=== PATIENT | male | born 1965 | race American Indian/Alaskan Native ===

== ENCOUNTER 2016-12-07 10:15 | Observation (INO) | payer OTHER, BC ==
[2016-12-07] MEDS ORDERED: Aspirin 81 MG Tab.Chew PO ONE ×2 (10:17→10:27)
[2016-12-07] MEDS ORDERED: Sodium Chloride 0.9% 10 ML Syringe FLUSH PRN (10:17)
[2016-12-07] MEDS ORDERED: Famotidine 20 MG/2 ML SDV IVPUSH ONE (10:17)
[2016-12-07] MEDS ORDERED: Nitroglycerin 0.4 MG Tab.SL SL ONE (10:17)
[2016-12-07] MEDS ORDERED: Sodium Chloride 0.9% 2.5 ML Syringe FLUSH PRN (10:17)
--- NOTE | 2016-12-07 10:23 | EDM.PDOC ---
ED HPI GENERAL MEDICAL PROBLEM - General Stated Complaint: HEART PAIN, LEFT ARM IN PAIN Time Seen by Provider: 12/07/16 10:20 Source of Information: Reports: Patient History Limitations: Reports: No Limitations - History of Present Illness INITIAL COMMENTS - FREE TEXT/NARRATIVE: HISTORY AND PHYSICAL: []51-year-old male presents with chest pain intermittently and arm pain since 7:30 this morning however does state this pain started yesterday afternoon after they were staining a dresser in the house. History of Present Illness: []Significant history having at 42 years old three-vessel stent placement [place], femoral vein stent [address] 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 Past medical history: As per history of present illness and as reviewed below otherwise noncontributory. Surgical history: As per history of present illness and as reviewed below otherwise noncontributory. Social history: No reported history of drug or alcohol abuse. Family history: As per history of present illness and as reviewed below otherwise noncontributory. Physical exam: Alert and oriented male complains of chest pain with examination, he does have some shortness of breath intermittently. HEENT: Atraumatic, normocehpalic, pupils reactive, negative for conjunctival pallor or scleral icterus, mucous membranes slightly dry , throat clear, neck supple, nontender, trachea midline. Lungs: Clear to auscultation, slightly diminished breath sounds equal bilaterally, chest non tender. Heart: S1S2, regular, negative for clicks, rubs, or JVD. Abdomen: Soft, nondistended, nontender. Negative for masses or hepatossplenmegaly. Negative for costovertebral tenderness. Pelvis: Stable nontender. Genitourinary: Deferred. Rectal: Deferred Extremities: Atraumatic, negative for cords or calf pain. Neurovascular unremarkable. Neuro: Awake, alert, oriented. Cranial nerves II through XII unremarkable. Cerebellum unremarkable. Motor and sensory unremarkable throughout. Exam nonfocal. Have discussed this case with Dr. Anthony So, hospitalist who is in agreement for observation. Discussed condition with the patient and his and they are agreeable for recommended observation Diagnostics: [CBC CMP amylase lipase troponin chest x-ray] Therapeutics: [Normal saline 1 L] Impression: []Intermittent chest pain Shortness breath Plan: [Refer for observation on telemetry] Definitive disposition and diagnosis as appropriate pending reevaluation and review of above. Onset: Today, Sudden - Related Data Allergies Allergy/AdvReac Type Severity Reaction Status Date / Time No Known Allergies Allergy Verified 12/07/16 10:19 Home Meds: Home Meds Aspirin 81 mg PO DAILY 02/03/16 [History] Nebivolol [Bystolic] 5 mg PO DAILY 02/03/16 [History] Rosuvastatin [Crestor] 10 mg PO DAILY 02/03/16 [History] atorvaSTATin [Lipitor] 10 mg PO DAILY 02/03/16 [History] Past Medical History Cardiovascular History: Reports: [place] Psychiatric History: Reports: None Dermatologic History: Reports: None - Infectious Disease History Infectious Disease History: Reports: Chicken Pox - Past Surgical History Cardiovascular Surgical History: Reports: Coronary Artery Stent Musculoskeletal Surgical History: Reports: Other (See Below) Social & Family History - Family History Cardiac: Reports: Hypertension - Tobacco Use Smoking Status *Q: Current Every Day Smoker Years of Tobacco use: 35 Packs/Tins Daily: 1 ED ROS GENERAL - Review of Systems Review Of Systems: ROS reveals no pertinent complaints other than HPI. ED EXAM, GENERAL - Physical Exam Exam: See Below EKG INTERPRETATION EKG Date: 12/07/16 Rhythm: NSR Comparison: No Change Course - Vital Signs Last Recorded V/S: Last Vital Signs Temp 36.7 C 12/07/16 10:19 Pulse 60 12/07/16 12:32 Resp 16 12/07/16 12:32 BP 135/77 12/07/16 12:32 Pulse Ox 100 12/07/16 12:32 - Orders/Labs/Meds Orders: Active Orders 24 hr Category Date Time Status Cardiac Monitoring [RC] . DIRECTED Care 12/07/16 10:17 Active EKG Documentation Completion [RC] STAT Care 12/07/16 10:17 Active Oxygen Therapy, ED [RC] ASDIRECTED Care 12/07/16 10:17 Active UA W/MICROSCOPIC [URIN] Stat Lab 12/07/16 10:17 Uncollected Sodium Chloride 0.9% [Saline Flush] Med 12/07/16 10:17 Active 10 ml FLUSH ASDIRECTED PRN Sodium Chloride 0.9% [Saline Flush] Med 12/07/16 10:17 Active 2.5 ml FLUSH ASDIRECTED PRN Saline Lock Insert [OM.PC] Stat Oth 12/07/16 10:17 Ordered Medication Orders Sodium Chloride (Saline Flush) 10 ml FLUSH ASDIRECTED PRN PRN Reason: Keep Vein Open Sodium Chloride (Saline Flush) 2.5 ml FLUSH ASDIRECTED PRN PRN Reason: Keep Vein Open Labs: Laboratory Tests 12/07/16 12/07/16 12/07/16 Range/Units 10:17 10:17 10:17 WBC 14.30 H (4.0-11.0) K/uL RBC 5.11 (4.50-5.90) M/uL Hgb 17.9 H (13.0-17.0) g/dL Hct 51.0 H (38.0-50.0) % MCV 99.8 H (80.0-98.0) fL MCH 35.0 H (27.0-32.0) pg MCHC 35.1 (31.0-37.0) g/dL RDW Std Deviation 47.4 (28.0-62.0) fl RDW Coeff of Wilder 13 (11.0-15.0) % Plt Count 79 L (150-400) K/uL MPV 11.90 (7.40-12.00) fL Neut % (Auto) 67.9 (48.0-80.0) % Lymph % (Auto) 22.3 (16.0-40.0) % Alcorn % (Auto) 8.5 (0.0-15.0) % Eos % (Auto) 1.0 (0.0-7.0) % Baso % (Auto) 0.3 (0.0-1.5) % Neut # (Auto) 9.7 H (1.4-5.7) K/uL Lymph # (Auto) 3.2 H (0.6-2.4) K/uL Alcorn # (Auto) 1.2 H (0.0-0.8) K/uL Eos # (Auto) 0.2 (0.0-0.7) K/uL Baso # (Auto) 0.1 (0.0-0.1) K/uL Nucleated RBC % 0.0 /100WBC Nucleated RBCs # 0 K/uL INR 0.99 (0.86-1.11) Sodium 138 (136-146) mmol/L Potassium 4.0 (3.5-5.1) mmol/L Chloride 107 (98-110) mmol/L Carbon Dioxide 20 L (21-31) mmol/L BUN 8 (6.0-23.0) mg/dL Creatinine 0.9 (0.6-1.5) mg/dL Est Cr Clr Drug Dosing 125.13 mL/min Estimated GFR (MDRD) > 60.0 ml/min Glucose 144 H (60-110) mg/dL Calcium 9.6 (8.8-10.8) mg/dL Total Bilirubin 0.6 (0.1-1.5) mg/dL AST 24 (5-40) IU/L ALT 23 (8-54) IU/L Alkaline Phosphatase 84 (40-150) Troponin I (0.0-0.29) NG/ML Total Protein 8.1 H (6.0-8.0) g/dL Albumin 4.2 (3.5-5.0) g/dL Globulin 3.9 H (2.0-3.5) g/dL Albumin/Globulin Ratio 1.1 L (1.3-2.8) Amylase 38 (10-90) U/L Lipase 34 (7-80) U/L // Range/Units 10:17 WBC (4.0-11.0) K/uL RBC (4.50-5.90) M/uL Hgb (13.0-17.0) g/dL Hct (38.0-50.0) % MCV (80.0-98.0) fL MCH (27.0-32.0) pg MCHC (31.0-37.0) g/dL RDW Std Deviation (28.0-62.0) fl RDW Coeff of Wilder (11.0-15.0) % Plt Count (150-400) K/uL MPV (7.40-12.00) fL Neut % (Auto) (48.0-80.0) % Lymph % (Auto) (16.0-40.0) % Alcorn % (Auto) (0.0-15.0) % Eos % (Auto) (0.0-7.0) % Baso % (Auto) (0.0-1.5) % Neut # (Auto) (1.4-5.7) K/uL Lymph # (Auto) (0.6-2.4) K/uL [place]corn # (Auto) (0.0-0.8) K/uL Eos # (Auto) (0.0-0.7) K/uL Baso # (Auto) (0.0-0.1) K/uL Nucleated RBC % /100WBC Nucleated RBCs # K/uL INR (0.86-1.11) Sodium (136-146) mmol/L Potassium (3.5-5.1) mmol/L Chloride (98-110) mmol/L Carbon Dioxide (21-31) mmol/L BUN (6.0-23.0) mg/dL Creatinine (0.6-1.5) mg/dL Est Cr Clr Drug Dosing mL/min Estimated GFR (MDRD) ml/min Glucose (60-110) mg/dL Calcium (8.8-10.8) mg/dL Total Bilirubin (0.1-1.5) mg/dL AST (5-40) IU/L ALT (8-54) IU/L Alkaline Phosphatase (40-150) Troponin I < 0.10 (0.0-0.29) NG/ML Total Protein (6.0-8.0) g/dL Albumin (3.5-5.0) g/dL Globulin (2.0-3.5) g/dL Albumin/Globulin Ratio (1.3-2.8) Amylase (10-90) U/L Lipase (7-80) U/L Meds: Medications Generic Name Dose Route Start Last Admin Trade Name Freq PRN Reason Stop Dose Admin Sodium Chloride 10 ml 12/07/16 10:17 Saline Flush FLUSH ASDIRECTED PRN Keep Vein Open Sodium Chloride 2.5 ml 12/07/16 10:17 Saline Flush FLUSH ASDIRECTED PRN Keep Vein Open Discontinued Medications Generic Name Dose Route Start Last Admin Trade Name Freq PRN Reason Stop Dose Admin Aspirin 324 mg 12/07/16 10:17 12/07/16 10:36 Aspirin PO 12/07/16 10:18 Not Given ONETIME ONE Aspirin 243 mg 12/07/16 10:27 12/07/16 10:31 Aspirin PO 12/07/16 10:28 243 mg ONETIME ONE Administration Famotidine 20 mg 12/07/16 10:17 12/07/16 10:32 Pepcid IVPUSH 12/07/16 10:18 20 mg ONETIME ONE Administration Sodium Chloride 1,000 mls @ 999 mls/hr 12/07/16 10:50 12/07/16 11:18 Normal Saline IV 12/07/16 11:50 999 mls/hr STAT ONE Administration Nitroglycerin 0.4 mg 12/07/16 10:17 12/07/16 10:33 Nitrostat SL 12/07/16 10:18 0.4 mg ONETIME ONE Administration Departure - Departure Time of Disposition: 12:44 Disposition: Refer to Observation Condition: Good Clinical Impression: Chest pain Qualifiers: Chest pain type: unspecified Qualified Code(s): R07.9 - Chest pain, unspecified Referrals: PCP,None [Primary Care Provider] - - My Orders Last 24 Hours: My Active Orders 12/07/16 10:17 Cardiac Monitoring [RC] . DIRECTED EKG Documentation Completion [RC] STAT Oxygen Therapy, ED [RC] ASDIRECTED UA W/MICROSCOPIC [URIN] Stat Sodium Chloride 0.9% [Saline Flush] 10 ml FLUSH ASDIRECTED PRN Sodium Chloride 0.9% [Saline Flush] 2.5 ml FLUSH ASDIRECTED PRN Saline Lock Insert [OM.PC] Stat - Assessment/Plan Last 24 Hours: My Active Orders 12/07/16 10:17 Cardiac Monitoring [RC] . DIRECTED EKG Documentation Completion [RC] STAT Oxygen Therapy, ED [RC] ASDIRECTED UA W/MICROSCOPIC [URIN] Stat Sodium Chloride 0.9% [Saline Flush] 10 ml FLUSH ASDIRECTED PRN Sodium Chloride 0.9% [Saline Flush] 2.5 ml FLUSH ASDIRECTED PRN Saline Lock Insert [OM.PC] Stat
[2016-12-07] MEDS ORDERED: Sodium Chloride 0.9% 1,000 ML IV ONE (10:50)
[2016-12-07 10:55] LABS: CHLORIDE,CL 107 mmol/L (98-110); SODIUM,NA 138 mmol/L (136-146)
--- NOTE | 2016-12-07 11:34 | CR ---
EXAMINATION: Portable chest radiograph. HISTORY: Chest pain. FINDINGS: The trachea is midline. The cardiomediastinal silhouette is within normal limits. No pulmonary infilt rates, effusions or pneumothorax. Osseous structures appear unremarkable. IMPRESSION: No acute cardiopulmonary process.
--- NOTE | 2016-12-07 16:38 | CONS ---
DATE OF CONSULTATION: DATE OF : 1965 PRIMARY CARE PHYSICIAN: None PCP REASON FOR CONSULTATION: Chest pain, shortness of breath, history of CAD. HISTORY OF PRESENT ILLNESS: This is a 51-year-old male with history of ST-elevation HI anterior wall in 2007, status post BMS stents in 2010 with LAD ISR status post PCI with GABRIELLE stent, ischemic cardiomyopathy worsening from 40-45 to 35-40%, probably less than 35%, admitted to the hospital at this time due to worsening shortness of breath and left arm pain. I saw him in the clinic and we were setting up for echocardiogram with contrast to rule out thrombus, however it has not been done yet and he is here in the emergency room due to worsening shortness breath that started yesterday. 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 He started having left arm pain when he was at work walking and that is why he was concerned about his heart and then he came to the emergency room. He got 1 nitroglycerin that seemed to get rid of the left arm pain. EKG unchanged and then he was admitted in the hospital. CURRENT MEDICATIONS: Aspirin 81 mg once a day, bisoprolol 2.5 mg once a day as well as inhalers, lisinopril 5 mg once a day as well as spironolactone 12.5 mg once a day. He also has a nitroglycerin pill for his chest pain p.r.n. He denied leg swelling, orthopnea, heart raising. No passing out. SOCIAL HISTORY: He currently is smoking. No drug use or alcohol drinking. PAST MEDICAL HISTORY: History of STEMI anterior wall HI, as well as CAD, hypertension, hyperlipidemia, current smoker, COPD, polycythemia as well. ALLERGIES: He does not have any known drug allergies. FAMILY HISTORY: He denied family history of heart attack. Recent cardiac testing echocardiogram in March 2015, ejection fraction 35-40% probably less than 35 cm with possible apical thrombose, mild MR, mild AR and EKG in October 2016 showed heart rate of 64 with Q-waves V1 to V3, anterior wall infarct, possible aneurysm with ST abnormality in V1 to V3. REVIEW OF SYSTEMS: 12-point review of system has been negative except as indicated in the HPI. PHYSICAL EXAMINATION: VITAL SIGNS: Initial blood pressure 153/82, current blood pressure is 139/81, initial heart rate is 68, current heart rate is 72, temperature is 35.9, O2 saturation 100% on room air, respirations 16. HEENT: No pallor. No jaundice. No JVD. HEART: Normal S1, S2. No murmur. LUNGS: Clear. ABDOMEN: Soft, nontender. Bowel sounds present. No hepatosplenomegaly. EXTREMITIES: Legs, no edema. LABORATORY DATA: EKG on December 07, 2016, shows a heart rate of 69, AK interval 162, QRS duration 93, QTc interval 461. ST-segment abnormality V1 to V4 with ST elevation, however has remained unchanged from his previous EKG with significant Q-wave in V1 to V3. ASSESSMENT AND PLAN: This is a 51-year-old male with history of ST elevation myocardial infarction anterior wall, coronary artery disease, hypertension, hyperlipidemia, ischemic cardiomyopathy, ejection fraction probably less than 35%, presented to the hospital with being shortness of breath. Currently, troponin was negative for one time as well as EKG was unchanged today. He has been admitted for acute coronary syndrome rule out. He would probably need to have an angiogram done, but this can be set up as an outpatient due to worsening ejection fraction. I will also recommend to increase bisoprolol from 5-10 mg once a day as well as increase the lisinopril from 5-10 mg once a day as well and continue spironolactone 12.5 mg once a day and continue aspirin 81 mg once a day. He should be stopping smoking due to significant CAD and he would need to have an echocardiogram with contrast setup as an outpatient as well. NATHEN / ZEENAT /[id number]
[2016-12-07] MEDS ORDERED: Temazepam 15 MG Cap PO PRN (18:36)
[2016-12-07] MEDS ORDERED: Albuterol 6.7 GM Inhaler INH PRN (20:02)
--- NOTE | 2016-12-07 20:12 | PCM.HP ---
H&P History of Present Illness - General Date of Service: 12/07/16 Admit Problem/Dx: Admission Diagnosis/Problem Admission Diagnosis/Problem Chest pain Source of Information: Patient, Old Records, Provider - History of Present Illness Initial Comments - Free Text/Narative: He presented today to the ED with periods of dyspnea. He has a history , as per Dr. Hardwick's note of prior stenting and significant impairment in LVEF> He states that he did not have any chest pain but did have a brief feeling of numbness in his left arm. He is feeling better now. His EKG was read as unremarkable by Dr Hardwick. - Related Data Allergies/Adverse Reactions: Allergies Allergy/AdvReac Type Severity Reaction Status Date / Time No Known Allergies Allergy Verified 12/07/16 10:19 Home Medications: Home Meds Aspirin 81 mg PO DAILY 02/03/16 [History] atorvaSTATin [Lipitor] 10 mg PO DAILY 02/03/16 [History] Albuterol Sulfate [Proair Hfa] 2 puff INH QID PRN 12/07/16 [History] Bisoprolol [Zebeta] 5 mg PO DAILY 12/07/16 [History] Glycopyrrolate/Formoterol Fum [Bevespi Aerosphere Inhaler] 2 puff INH BID [History] Lisinopril [Prinivil] 10 mg PO DAILY 12/07/16 [History] Nitroglycerin [Nitrostat] 0.4 mg SL ASDIRECTED 12/07/16 [History] Rosuvastatin Calcium 40 mg PO DAILY 12/07/16 [History] Spironolactone [Aldactone] 12.5 mg PO DAILY 12/07/16 [History] Varenicline Tartrate [Chantix] 1 mg PO BID 12/07/16 [History] Past Medical History HEENT History: Reports: None Cardiovascular History: Reports: [place] Respiratory History: Reports: None Gastrointestinal History: Reports: None Genitourinary History: Reports: None Neurological History: Reports: None Psychiatric History: Reports: None Dermatologic History: Reports: None - Infectious Disease History Infectious Disease History: Reports: Chicken Pox - Past Surgical History HEENT Surgical History: Reports: None Cardiovascular Surgical History: Reports: Coronary Artery Stent GI Surgical History: Reports: None Musculoskeletal Surgical History: Reports: Other (See Below) Social & Family History - Family History Family Medical History: Noncontributory Cardiac: Reports: Hypertension Endocrine/Metabolic: Reports: Diabetes, type II - Tobacco Use Smoking Status *Q: Current Every Day Smoker Years of Tobacco use: 30 Packs/Tins Daily: 1 Used Tobacco, but Quit: No Second Hand Smoke Exposure: No - Caffeine Use Caffeine Use: Reports: Soda - Alcohol Use Days Per Week of Alcohol Use: 1 Number of Drinks Per Day: 2 Total Drinks Per Week: 2 Date of Last Drink: 12/06/16 Time of Last Drink: 21:00 - Recreational Drug Use Recreational Drug Use: No H&P Review of Systems - Review of Systems: Review Of Systems: See Below General: Denies: Fever, Chills Pulmonary: Reports: Shortness of Breath Cardiovascular: Denies: Chest Pain, Edema Gastrointestinal: Denies: Abdominal Pain, Black Stool, Bloody Stool, Hematemesis , Hematochezia, Melena Genitourinary: Denies: Hematuria Exam - Exam Exam: See Below - Vital Signs Vital Signs: Last Vital Signs Temp 97.4 F 12/07/16 16:00 Pulse 67 12/07/16 16:00 Resp 22 H 12/07/16 16:00 BP 138/74 12/07/16 16:00 Pulse Ox 99 12/07/16 16:00 Weight: 112.037 kg - Exam General: Alert, Oriented, Cooperative HEENT: EOMI, Mucosa Moist & [place] Lungs: Clear to Auscultation, Normal Respiratory Effort Cardiovascular: Regular Rate, Regular Rhythm GI/Abdominal Exam: Soft, Non-Tender (Male) Exam: Deferred Rectal (Males) Exam: Deferred Neuro Extensive - Motor, Sensory, Reflexes: No: Facial palsy (L), Facial Palsy ( R), Hemeplagia (R), Hemeplagia (L) Psychiatric: Alert, Normal Affect. No: Depressed, Agitated - Patient Data Lab Results Last 24 hrs: Laboratory Results - last 24 hr 12/07/16 12/07/16 Range/Units 18:06 19:00 Troponin I < 0.10 (0.0-0.29) NG/ML Urine Color YELLOW Urine Appearance CLEAR Urine pH 6.0 (5.0-8.0) Ur Specific [place] 1.015 (1.001-1.035) Urine Protein NEGATIVE (NEGATIVE) mg/dL Urine Glucose (UA) NEGATIVE (NEGATIVE) mg/dL Urine Ketones NEGATIVE (NEGATIVE) mg/dL Urine Occult Blood NEGATIVE (NEGATIVE) Urine Nitrite NEGATIVE (NEGATIVE) Urine Bilirubin NEGATIVE (NEGATIVE) Urine Urobilinogen >=8.0 H (<2.0) EU/dL Ur Leukocyte Esterase NEGATIVE (NEGATIVE) Urine RBC 0-1 (0-2/HPF) Urine WBC 0-1 (0-5/HPF) Ur Epithelial Cells RARE (NONE-FEW) Urine Bacteria RARE (NEGATIVE) Result Diagrams: 12/07/16 10:17 12/07/16 10:17 *Q Meaningful Use (ADM) - VTE *Q VTE Criteria *Q: - Stroke *Q Stroke Criteria *Q: - AMI *Q AMI Criteria *Q: - Problem List (1) CAD (coronary artery disease) SNOMED Code(s): 66575915 ICD Code: I25.10 - ATHSCL HEART DISEASE OF [place] CORONARY ARTERY W/O ANG PCTRS Status: Acute Current Visit: Yes (2) LVEF <40% SNOMED Code(s): 214881846, 158850786 ICD Code: R09.89 - OTH SYMPTOMS AND SIGNS INVOLVING THE CIRC AND RESP SYSTEMS Status: Acute Current Visit: Yes (3) Smoker SNOMED Code(s): 98399300 ICD Code: F17.200 - NICOTINE DEPENDENCE, UNSPECIFIED, UNCOMPLICATED Status : Acute Current Visit: Yes Problem List Initiated/Reviewed/Updated: Yes Orders Last 24hrs: Active Orders 24 hr Category Date Time Status Antiembolic Devices [RC] PER UNIT ROUTINE Care 12/07/16 18:37 Active Notify Provider Consults [RC] ASDIRECTED Care 12/07/16 18:18 Active Oxygen Therapy [RC] PRN Care 12/07/16 18:36 Active Telemetry Monitoring [Cardiac Monitoring] [RC] . Care 12/07/16 13:17 Active DIRECTED VTE/DVT Education [RC] PER UNIT ROUTINE Care 12/07/16 18:36 Active Vital Signs [RC] Q4H Care 12/07/16 18:36 Active Consult to Physician [CONS] Routine Cons 12/07/16 18:17 Active Regular Diet [DIET] Diet 12/07/16 Dinner Active CBC WITH AUTO DIFF [HEME] AM Lab 12/08/16 05:11 Ordered LIPID PANEL [CHEM] AM Lab 12/08/16 05:11 Ordered TROPONIN I [CHEM] AM Lab 12/08/16 05:11 Ordered TROPONIN I [CHEM] Q6H Lab 12/07/16 23:55 Ordered Albuterol [Proventil HFA] Med 12/07/16 20:02 Ordered 2 puff INH QID PRN Aspirin Med 12/08/16 09:00 Active 81 mg PO DAILY Bisoprolol Med 12/08/16 09:00 Pending 5 mg PO DAILY Glycopyrrolate/Formoterol Fum [[employer]eves[employer] Aerosphere Med 12/07/16 21:00 Ordered Inhaler] 2 puff INH BID Lisinopril [Prinivil] Med 12/08/16 09:00 Active 10 mg PO DAILY Nitroglycerin [Nitrostat] Med 12/07/16 20:15 Ordered 0.4 mg SL ASDIRECTED Rosuvastatin Calcium [Rosuvastatin Calcium] Med 12/08/16 09:00 Ordered 40 mg PO DAILY Spironolactone [Aldactone] Med 12/08/16 09:00 Ordered 12.5 mg PO DAILY Temazepam [Restoril] Med 12/07/16 18:36 Active 15 mg PO BEDTIME PRN Sequential Compression Device [OM.PC] Per Unit Routine Oth 12/07/16 18:37 Ordered Resuscitation Status Routine Resus Stat 12/07/16 18:36 Ordered Medication Orders Albuterol (Proventil Hfa) gm INH QID PRN PRN Reason: Wheezing Aspirin (Aspirin) 81 mg PO DAILY SUZANNE Lisinopril (Prinivil) 10 mg PO DAILY SUZANNE Nitroglycerin (Nitrostat) 0.4 mg SL ASDIRECTED SUZANNE Non-Form (Bisoprolol 5 Mg Tab) 5 mg PO DAILY SUZANNE Non-Formulary Medication (Glycopyrrolate/Formoterol Fum [Bevespi Aerosphere Inhaler]) 2 puff INH BID SUZANNE Non-Formulary Medication (Rosuvastatin Calcium [Rosuvastatin Calcium]) 40 mg PO DAILY SUZANNE Sodium Chloride (Saline Flush) 10 ml FLUSH ASDIRECTED PRN PRN Reason: Keep Vein Open Sodium Chloride (Saline Flush) 2.5 ml FLUSH ASDIRECTED PRN PRN Reason: Keep Vein Open Spironolactone (Aldactone) 12.5 mg PO DAILY SUZANNE Temazepam (Restoril) 15 mg PO BEDTIME PRN PRN Reason: Sleep Assessment/Plan Comment:: as per Dr Hardwick, cardiology rn see orders Dr Hardwick advised me that he will arrange for referral for angiogram. troponins anticipated discharge tomorrow. Anthony So MD
[2016-12-07] MEDS ORDERED: Nitroglycerin 0.4 MG Tab.SL SL SCH (20:15)
[2016-12-07] MEDS: Bevespi Aerosphere Inhaler INH SCH (21:00)
[2016-12-08] MEDS ORDERED: Spironolactone 25 MG Tab PO SCH (09:00)
[2016-12-08] MEDS ORDERED: Lisinopril 10 MG Tab PO SCH (09:00)
[2016-12-08] MEDS ORDERED: Rosuvastatin 10 MG Tab PO SCH (09:00)
[2016-12-08] MEDS ORDERED: Aspirin 81 MG Tab.Chew PO SCH (09:00)
[2016-12-08] MEDS ORDERED: Bisoprolol 5 MG TAB PO SCH (09:00)
[2016-12-08] MEDS: Bevespi Aerosphere Inhaler INH SCH (10:10)
[2016-12-08 11:56] VITALS: BP 131/81
--- NOTE | 2016-12-08 12:38 | PCM.DCSUM1 ---
Discharge Summary - Hospital Course Brief History: he was admitted after having several transient episodes of dyspnea at home. - Discharge Data Discharge Date: 12/08/16 Discharge Disposition: Home, Self-Care 01 Condition: Good - Discharge Diagnosis/Problem(s) (1) CAD (coronary artery disease) SNOMED Code(s): 25482369 ICD Code: I25.10 - ATHSCL HEART DISEASE OF [place] CORONARY ARTERY W/O ANG PCTRS Status: Acute Current Visit: Yes (2) LVEF <40% SNOMED Code(s): 388106773, 795543396 ICD Code: R09.89 - OTH SYMPTOMS AND SIGNS INVOLVING THE CIRC AND RESP SYSTEMS Status: Acute Current Visit: Yes (3) Smoker SNOMED Code(s): 81492121 ICD Code: F17.200 - NICOTINE DEPENDENCE, UNSPECIFIED, UNCOMPLICATED Status : Acute Current Visit: Yes - Patient Summary/Data Consults: Consultations 12/07/16 18:17 Consult to Physician [CONS] Routine Hospital Course: serial troponins were negative. Dr Hardwick was consulted. He has increased his bisoprolol to 5 mg daily and increased his lisinopril to 10 mg daily. He has called these prescriptions to the pharmacy Dr. Hardwick said that he will arrange follow up angiogram. Serial troponins are normal and the patient feels better at discharge . - Discharge Plan Home Medications: Home Meds Aspirin 81 mg PO DAILY 02/03/16 [History] atorvaSTATin [Lipitor] 10 mg PO DAILY 02/03/16 [History] Albuterol Sulfate [Proair Hfa] 2 puff INH QID PRN 12/07/16 [History] Bisoprolol [Zebeta] 5 mg PO DAILY 12/07/16 [History] Glycopyrrolate/Formoterol Fum [Bevespi Aerosphere Inhaler] 2 puff INH BID [History] Lisinopril [Prinivil] 10 mg PO DAILY 12/07/16 [History] Nitroglycerin [Nitrostat] 0.4 mg SL ASDIRECTED 12/07/16 [History] Rosuvastatin Calcium 40 mg PO DAILY 12/07/16 [History] Spironolactone [Aldactone] 12.5 mg PO DAILY 12/07/16 [History] Varenicline Tartrate [Chantix] 1 mg PO BID 12/07/16 [History] Forms: ED Department Discharge Referrals: PCP,None [Primary Care Provider] - - Patient Data Vitals - Most Recent: Last Vital Signs Temp 97.8 F 12/08/16 11:00 Pulse 63 12/08/16 11:00 Resp 16 12/08/16 11:00 BP 131/81 12/08/16 11:00 Pulse Ox 95 12/08/16 07:51 Weight - Most Recent: 112.037 kg I&O - Last 24 hours: Intake & Output 12/07/16 12/08/16 12/08/16 22:59 06:59 14:59 Intake Total 250 900 Output Total 450 700 Balance -200 200 Lab Results - Last 24 hrs: Laboratory Results - last 24 hr 12/07/16 12/07/16 12/07/16 Range/Units 18:06 19:00 23:46 WBC (4.0-11.0) K/uL RBC (4.50-5.90) M/uL Hgb (13.0-17.0) g/dL Hct (38.0-50.0) % MCV (80.0-98.0) fL MCH (27.0-32.0) pg MCHC (31.0-37.0) g/dL RDW Std Deviation (28.0-62.0) fl RDW Coeff of Wilder (11.0-15.0) % Plt Count (150-400) K/uL MPV (7.40-12.00) fL Neut % (Auto) (48.0-80.0) % Lymph % (Auto) (16.0-40.0) % [place] % (Auto) (0.0-15.0) % Eos % (Auto) (0.0-7.0) % Baso % (Auto) (0.0-1.5) % Neut # (Auto) (1.4-5.7) K/uL Lymph # (Auto) (0.6-2.4) K/uL [place] # (Auto) (0.0-0.8) K/uL Eos # (Auto) (0.0-0.7) K/uL Baso # (Auto) (0.0-0.1) K/uL Nucleated RBC % /100WBC Nucleated RBCs # K/uL Troponin I < 0.10 < 0.10 (0.0-0.29) NG/ML Triglycerides (10-190) mg/dL Cholesterol (131-240) mg/dL LDL Cholesterol, Calc (60-180) mg/dL VLDL Cholesterol (5-55) mg/dL HDL Cholesterol (40-80) mg/dL Cholesterol/HDL Ratio (3.3-6.0) Urine Color YELLOW Urine Appearance CLEAR Urine pH 6.0 (5.0-8.0) Ur Specific [place] 1.015 (1.001-1.035) Urine Protein NEGATIVE (NEGATIVE) mg/dL Urine Glucose (UA) NEGATIVE (NEGATIVE) mg/dL Urine Ketones NEGATIVE (NEGATIVE) mg/dL Urine Occult Blood NEGATIVE (NEGATIVE) Urine Nitrite NEGATIVE (NEGATIVE) Urine Bilirubin NEGATIVE (NEGATIVE) Urine Urobilinogen >=8.0 H (<2.0) EU/dL Ur Leukocyte Esterase NEGATIVE (NEGATIVE) Urine RBC 0-1 (0-2/HPF) Urine WBC 0-1 (0-5/HPF) Ur Epithelial Cells RARE (NONE-FEW) Urine Bacteria RARE (NEGATIVE) 12/08/16 12/08/16 12/08/16 Range/Units 05:06 05:06 05:06 WBC 12.71 H (4.0-11.0) K/uL RBC 4.86 (4.50-5.90) M/uL Hgb 16.9 (13.0-17.0) g/dL Hct 48.5 (38.0-50.0) % MCV 99.8 H (80.0-98.0) fL MCH 34.8 H (27.0-32.0) pg MCHC 34.8 (31.0-37.0) g/dL RDW Std Deviation 46.7 (28.0-62.0) fl RDW Coeff of [place] 13 (11.0-15.0) % Plt Count 93 L (150-400) K/uL MPV 11.30 (7.40-12.00) fL Neut % (Auto) 66.9 (48.0-80.0) % Lymph % (Auto) 21.0 (16.0-40.0) % [place] % (Auto) 10.1 (0.0-15.0) % Eos % (Auto) 1.7 (0.0-7.0) % Baso % (Auto) 0.3 (0.0-1.5) % Neut # (Auto) 8.5 H (1.4-5.7) K/uL Lymph # (Auto) 2.7 H (0.6-2.4) K/uL [place] # (Auto) 1.3 H (0.0-0.8) K/uL Eos # (Auto) 0.2 (0.0-0.7) K/uL Baso # (Auto) 0.0 (0.0-0.1) K/uL Nucleated RBC % 0.0 /100WBC Nucleated RBCs # 0 K/uL Troponin I < 0.10 (0.0-0.29) NG/ML Triglycerides 80 (10-190) mg/dL Cholesterol 122 L (131-240) mg/dL LDL Cholesterol, Calc 72 (60-180) mg/dL VLDL Cholesterol 16 (5-55) mg/dL HDL Cholesterol 34 L (40-80) mg/dL Cholesterol/HDL Ratio 3.6 (3.3-6.0) Urine Color Urine Appearance Urine pH (5.0-8.0) Ur Specific [place] (1.001-1.035) Urine Protein (NEGATIVE) mg/dL Urine Glucose (UA) (NEGATIVE) mg/dL Urine Ketones (NEGATIVE) mg/dL Urine Occult Blood (NEGATIVE) Urine Nitrite (NEGATIVE) Urine Bilirubin (NEGATIVE) Urine Urobilinogen (<2.0) EU/dL Ur Leukocyte Esterase (NEGATIVE) Urine RBC (0-2/HPF) Urine WBC (0-5/HPF) Ur Epithelial Cells (NONE-FEW) Urine Bacteria (NEGATIVE) Med Orders - Current: Current Medications Albuterol (Proventil Hfa) 0 gm INH QID PRN PRN Reason: Wheezing Aspirin (Aspirin) 81 mg PO DAILY [facility] Last Admin: 12/08/16 08:26 Dose: 81 mg Lisinopril (Prinivil) 10 mg PO DAILY [facility] Last Admin: 12/08/16 08:25 Dose: 10 mg Nitroglycerin (Nitrostat) 0.4 mg SL ASDIRECTED [facility] Bisoprolol 5 Mg Tab 1 each PO DAILY [facility] Last Admin: 12/08/16 10:10 Dose: 1 each Bevespi Aerosphere (Inhaler) 0 each INH BID [facility] Last Admin: 12/08/16 10:10 Dose: 2 each Rosuvastatin Calcium (Crestor) 40 mg PO DAILY [facility] Last Admin: 12/08/16 08:25 Dose: 40 mg Sodium Chloride (Saline Flush) 10 ml FLUSH ASDIRECTED PRN PRN Reason: Keep Vein Open Sodium Chloride (Saline Flush) 2.5 ml FLUSH ASDIRECTED PRN PRN Reason: Keep Vein Open Spironolactone (Aldactone) 12.5 mg PO DAILY [facility] Last Admin: 12/08/16 08:26 Dose: 12.5 mg Temazepam (Restoril) 15 mg PO BEDTIME PRN PRN Reason: Sleep Discontinued Medications Aspirin (Aspirin) 324 mg PO ONETIME ONE Stop: 12/07/16 10:18 Last Admin: 12/07/16 10:36 Dose: Not Given Aspirin (Aspirin) 243 mg PO ONETIME ONE Stop: 12/07/16 10:28 Last Admin: 12/07/16 10:31 Dose: 243 mg Famotidine (Pepcid) 20 mg IVPUSH ONETIME ONE Stop: 12/07/16 10:18 Last Admin: 12/07/16 10:32 Dose: 20 mg Sodium Chloride (Normal Saline) 1,000 mls @ 999 mls/hr IV STAT ONE Stop: 12/07/16 11:50 Last Admin: 12/07/16 11:18 Dose: 999 mls/hr Nitroglycerin (Nitrostat) 0.4 mg SL ONETIME ONE Stop: 12/07/16 10:18 Last Admin: 12/07/16 10:33 Dose: 0.4 mg *Q Meaningful Use (DIS) - VTE *Q VTE Criteria *Q: - Stroke *Q Stroke Criteria *Q: - AMI *Q AMI Criteria *Q:
--- NOTE | 2016-12-08 14:50 | PCM.PN ---
- General Info Date of Service: 12/08/16 Admission Dx/Problem (Free Text): Admission Diagnosis/Problem Admission Diagnosis/Problem Chest pain Subjective Update: he felt well no futher episodes of arm pain or tingling Functional Status: Reports: Pain Controlled - Review of Systems General: Reports: No Symptoms HEENT: Reports: No Symptoms Pulmonary: Reports: No Symptoms Cardiovascular: Reports: No Symptoms Gastrointestinal: Reports: No Symptoms Genitourinary: Reports: No Symptoms Musculoskeletal: Reports: No Symptoms Skin: Reports: No Symptoms Neurological: Reports: No Symptoms - Patient Data Vitals - Most Recent: Last Vital Signs Temp 36.6 C 12/08/16 11:00 Pulse 63 12/08/16 11:00 Resp 16 12/08/16 11:00 BP 131/81 12/08/16 11:00 Pulse Ox 95 12/08/16 07:51 Weight - Most Recent: 112.037 kg I&O - Last 24 Hours: Intake & Output 12/07/16 12/08/16 12/08/16 22:59 06:59 14:59 Intake Total 250 900 Output Total 450 700 Balance -200 200 Lab Results Last 24 Hours: Laboratory Results - last 24 hr 12/07/16 12/07/16 12/07/16 Range/Units 18:06 19:00 23:46 WBC (4.0-11.0) K/uL RBC (4.50-5.90) M/uL Hgb (13.0-17.0) g/dL Hct (38.0-50.0) % MCV (80.0-98.0) fL MCH (27.0-32.0) pg MCHC (31.0-37.0) g/dL RDW Std Deviation (28.0-62.0) fl RDW Coeff of [place] (11.0-15.0) % Plt Count (150-400) K/uL MPV (7.40-12.00) fL Neut % (Auto) (48.0-80.0) % Lymph % (Auto) (16.0-40.0) % [place] % (Auto) (0.0-15.0) % Eos % (Auto) (0.0-7.0) % Baso % (Auto) (0.0-1.5) % Neut # (Auto) (1.4-5.7) K/uL Lymph # (Auto) (0.6-2.4) K/uL [place] # (Auto) (0.0-0.8) K/uL Eos # (Auto) (0.0-0.7) K/uL Baso # (Auto) (0.0-0.1) K/uL Nucleated RBC % /100WBC Nucleated RBCs # K/uL Troponin I < 0.10 < 0.10 (0.0-0.29) NG/ML Triglycerides (10-190) mg/dL Cholesterol (131-240) mg/dL LDL Cholesterol, Calc (60-180) mg/dL VLDL Cholesterol (5-55) mg/dL HDL Cholesterol (40-80) mg/dL Cholesterol/HDL Ratio (3.3-6.0) Urine Color YELLOW Urine Appearance CLEAR Urine pH 6.0 (5.0-8.0) Ur Specific [place] 1.015 (1.001-1.035) Urine Protein NEGATIVE (NEGATIVE) mg/dL Urine Glucose (UA) NEGATIVE (NEGATIVE) mg/dL Urine Ketones NEGATIVE (NEGATIVE) mg/dL Urine Occult Blood NEGATIVE (NEGATIVE) Urine Nitrite NEGATIVE (NEGATIVE) Urine Bilirubin NEGATIVE (NEGATIVE) Urine Urobilinogen >=8.0 H (<2.0) EU/dL Ur Leukocyte Esterase NEGATIVE (NEGATIVE) Urine RBC 0-1 (0-2/HPF) Urine WBC 0-1 (0-5/HPF) Ur Epithelial Cells RARE (NONE-FEW) Urine Bacteria RARE (NEGATIVE) 12/08/16 12/08/16 12/08/16 Range/Units 05:06 05:06 05:06 WBC 12.71 H (4.0-11.0) K/uL RBC 4.86 (4.50-5.90) M/uL Hgb 16.9 (13.0-17.0) g/dL Hct 48.5 (38.0-50.0) % MCV 99.8 H (80.0-98.0) fL MCH 34.8 H (27.0-32.0) pg MCHC 34.8 (31.0-37.0) g/dL RDW Std Deviation 46.7 (28.0-62.0) fl RDW Coeff of [place] 13 (11.0-15.0) % Plt Count 93 L (150-400) K/uL MPV 11.30 (7.40-12.00) fL Neut % (Auto) 66.9 (48.0-80.0) % Lymph % (Auto) 21.0 (16.0-40.0) % [place] % (Auto) 10.1 (0.0-15.0) % Eos % (Auto) 1.7 (0.0-7.0) % Baso % (Auto) 0.3 (0.0-1.5) % Neut # (Auto) 8.5 H (1.4-5.7) K/uL Lymph # (Auto) 2.7 H (0.6-2.4) K/uL [place] # (Auto) 1.3 H (0.0-0.8) K/uL Eos # (Auto) 0.2 (0.0-0.7) K/uL Baso # (Auto) 0.0 (0.0-0.1) K/uL Nucleated RBC % 0.0 /100WBC Nucleated RBCs # 0 K/uL Troponin I < 0.10 (0.0-0.29) NG/ML Triglycerides 80 (10-190) mg/dL Cholesterol 122 L (131-240) mg/dL LDL Cholesterol, Calc 72 (60-180) mg/dL VLDL Cholesterol 16 (5-55) mg/dL HDL Cholesterol 34 L (40-80) mg/dL Cholesterol/HDL Ratio 3.6 (3.3-6.0) Urine Color Urine Appearance Urine pH (5.0-8.0) Ur Specific [place] (1.001-1.035) Urine Protein (NEGATIVE) mg/dL Urine Glucose (UA) (NEGATIVE) mg/dL Urine Ketones (NEGATIVE) mg/dL Urine Occult Blood (NEGATIVE) Urine Nitrite (NEGATIVE) Urine Bilirubin (NEGATIVE) Urine Urobilinogen (<2.0) EU/dL Ur Leukocyte Esterase (NEGATIVE) Urine RBC (0-2/HPF) Urine WBC (0-5/HPF) Ur Epithelial Cells (NONE-FEW) Urine Bacteria (NEGATIVE) Med Orders - Current: Current Medications Discontinued Medications Albuterol (Proventil Hfa) 0 gm INH QID PRN PRN Reason: Wheezing Aspirin (Aspirin) 324 mg PO ONETIME ONE Stop: 12/07/16 10:18 Last Admin: 12/07/16 10:36 Dose: Not Given Aspirin (Aspirin) 243 mg PO ONETIME ONE Stop: 12/07/16 10:28 Last Admin: 12/07/16 10:31 Dose: 243 mg Aspirin (Aspirin) 81 mg PO DAILY [facility] Last Admin: 12/08/16 08:26 Dose: 81 mg Famotidine (Pepcid) 20 mg IVPUSH ONETIME ONE Stop: 12/07/16 10:18 Last Admin: 12/07/16 10:32 Dose: 20 mg Sodium Chloride (Normal Saline) 1,000 mls @ 999 mls/hr IV STAT ONE Stop: 12/07/16 11:50 Last Admin: 12/07/16 11:18 Dose: 999 mls/hr Lisinopril (Prinivil) 10 mg PO DAILY [facility] Last Admin: 12/08/16 08:25 Dose: 10 mg Nitroglycerin (Nitrostat) 0.4 mg SL ONETIME ONE Stop: 12/07/16 10:18 Last Admin: 12/07/16 10:33 Dose: 0.4 mg Nitroglycerin (Nitrostat) 0.4 mg SL ASDIRECTED [facility] Bisoprolol 5 Mg Tab 1 each PO DAILY [facility] Last Admin: 12/08/16 10:10 Dose: 1 each Bevespi Aerosphere (Inhaler) 0 each INH BID [facility] Last Admin: 12/08/16 10:10 Dose: 2 each Rosuvastatin Calcium (Crestor) 40 mg PO DAILY [facility] Last Admin: 12/08/16 08:25 Dose: 40 mg Sodium Chloride (Saline Flush) 10 ml FLUSH ASDIRECTED PRN PRN Reason: Keep Vein Open Sodium Chloride (Saline Flush) 2.5 ml FLUSH ASDIRECTED PRN PRN Reason: Keep Vein Open Spironolactone (Aldactone) 12.5 mg PO DAILY [facility] Last Admin: 12/08/16 08:26 Dose: 12.5 mg Temazepam (Restoril) 15 mg PO BEDTIME PRN PRN Reason: Sleep - Exam General: Alert, Oriented HEENT: Pupils Equal Neck: Supple Lungs: Clear to Auscultation, Normal Respiratory Effort Cardiovascular: Regular Rate, Regular Rhythm GI/Abdominal Exam: Normal Bowel Sounds (Male) Exam: No Hernia, Normal Inspection Back Exam: Normal Inspection Extremities: Normal Inspection Skin: Warm Neurological: No New Focal Deficit EKG INTERPRETATION Rhythm: NSR - Problem List Review Problem List Initiated/Reviewed/Updated: Yes - Plan Plan:: 51M HTN HLP former smoker hx anterior wall STEMI, LAD ISR PCI 2011, PVD s/p PCI rt common iliac with worsening EF 40-45% to < 35% questioning LV thrombus. 1. Arm tingling SOB, no ECG changes, trop - x 4, he is ruled for ACS. regarding atypical symptoms of arm tingling, with worsening EF, I recommended to have angiogram, this can be done as outpt. He was supposed to have echo with contrast however he did not make it. We will set up appointment for echo with contrast in [place]. - coronary angiogram, echo with contrast 2. cardiomyopathy with hx LAD PCI: he will need angiogram, meantime will adjust his meds including aldactone, Bisoprolol, ACEI. f/u in 2 weeks
== END 2016-12-08 12:50 | disposition home or self-care (01) ==
LOC: MW.ED 10:15 → MW.MS 12:46
PROVIDERS: ADMIT Family Medicine; ATTEND Family Medicine
DX: I25.10 Atherosclerotic heart disease of native coronary artery without angina pectoris (principal); I25.2 Old myocardial infarction; Z95.5 Presence of coronary angioplasty implant and graft; F17.210 Nicotine dependence, cigarettes, uncomplicated; Z79.899 Other long term (current) drug therapy
CPT/HCPCS: 36415; 71010; 80053; 80061; 81001; 82150; 83690; 84484; 85025; 85610; 93005; 96361; 96374; 99285; A9270; G0378; J7040; 99283

== ENCOUNTER 2019-02-06 08:35 | Observation (INO) | payer BC, OTHER ==
[2019-02-06] MEDS ORDERED: Sodium Chloride 0.9% 2.5 ML Syringe FLUSH PRN (08:37)
[2019-02-06] MEDS ORDERED: Sodium Chloride 0.9% 1,000 ML IV ONE (08:37)
[2019-02-06] MEDS ORDERED: Sodium Chloride 0.9% 10 ML Syringe FLUSH PRN (08:37)
--- NOTE | 2019-02-06 08:39 | EDM.PDOC ---
ED HPI GENERAL MEDICAL PROBLEM - General Chief Complaint: Chest Pain Stated Complaint: CHEST PAINS/HARD TIME BREATHING Time Seen by Provider: 02/06/19 08:38 Source of Information: Reports: Patient History Limitations: Reports: No Limitations - History of Present Illness INITIAL COMMENTS - FREE TEXT/NARRATIVE: HISTORY AND PHYSICAL: History of present illness: Patient is a 53-year-old male presents to the ED if complaint of chest pain on and off for the past 3 hours. Patient has a history of HI with 6 stents in 2000. He states that he is having left-sided sharp chest pain that comes and goes. He does have associated shortness of breath and nausea. He states that he does not currently have pain at this time. He took his regular medication this morning which does included aspirin but he is uncertain of the dose. he states that this pain is different than when he had his heart attack as he is not sweaty and dizzy this time. He denies cough, abdominal pain, diarrhea, fevers, chills. He does smoke about 1 pack per day 30 years. Review of systems: As per history of present illness and below otherwise all systems reviewed and negative. Past medical history: As per history of present illness and as reviewed below otherwise noncontributory. Surgical history: As per history of present illness and as reviewed below otherwise noncontributory. Social history: No reported history of drug or alcohol abuse. Family history: As per history of present illness and as reviewed below otherwise noncontributory. Physical exam: General: Patient sitting comfortably in no acute distress and nontoxic appearing HEENT: Atraumatic, normocephalic, pupils reactive, negative for conjunctival pallor or scleral icterus, mucous membranes moist, throat clear, neck supple, nontender, trachea midline. No meningeal signs. Lungs: Clear to auscultation, breath sounds equal bilaterally, chest nontender. Heart: S1S2, regular, negative for clicks, rubs, or overt murmur. Abdomen: Soft, nondistended, nontender. Negative for masses or hepatosplenomegaly. Negative for costovertebral tenderness. No rigidity, rebound , guarding. Pelvis: Stable nontender. Genitourinary: Deferred. Rectal: Deferred. Extremities: Atraumatic, negative for cords or calf pain. Neurovascular unremarkable. Neuro: Awake, alert, oriented. Cranial nerves II through XII unremarkable. Cerebellum unremarkable. Motor and sensory unremarkable throughout. Exam nonfocal. Notes: Diagnostics: CBC, CMP, Magnesium, troponin, EKG, CXR, cardiac monitoring Therapeutics: Prescriptions: Impression: Chest pain r/o ACS Plan discussed with Dr. Nieto, patient will be admitted to observation telemetry rule out ACS. Definitive disposition and diagnosis as appropriate pending reevaluation and review of above. Left Chest Pain Score (Numeric/FACES): 0 - Related Data Allergies Allergy/AdvReac Type Severity Reaction Status Date / Time No Known Allergies Allergy Verified 02/06/19 08:56 Home Meds: Home Meds Aspirin 81 mg PO DAILY 02/03/16 [History] atorvaSTATin [Lipitor] 10 mg PO DAILY 02/03/16 [History] Albuterol Sulfate [Proair Hfa] 2 puff INH QID PRN 12/07/16 [History] Bisoprolol [Zebeta] 5 mg PO DAILY 12/07/16 [History] Glycopyrrolate/Formoterol Fum [Bevespi Aerosphere Inhaler] 2 puff INH BID [History] Lisinopril [Prinivil] 10 mg PO DAILY 12/07/16 [History] Nitroglycerin [Nitrostat] 0.4 mg SL ASDIRECTED 12/07/16 [History] Rosuvastatin Calcium 40 mg PO DAILY 12/07/16 [History] Spironolactone [Aldactone] 12.5 mg PO DAILY 12/07/16 [History] Varenicline Tartrate [Chantix] 1 mg PO BID 12/07/16 [History] Past Medical History HEENT History: Reports: None Cardiovascular History: Reports: HI Respiratory History: Reports: None Gastrointestinal History: Reports: None Genitourinary History: Reports: None Neurological History: Reports: None Psychiatric History: Reports: None Dermatologic History: Reports: None - Infectious Disease History Infectious Disease History: Reports: Chicken Pox - Past Surgical History HEENT Surgical History: Reports: None Cardiovascular Surgical History: Reports: Coronary Artery Stent GI Surgical History: Reports: None Musculoskeletal Surgical History: Reports: Other (See Below) Social & Family History - Family History Family Medical History: Noncontributory Cardiac: Reports: Hypertension Endocrine/Metabolic: Reports: Diabetes, type II - Caffeine Use Caffeine Use: Reports: Soda ED ROS GENERAL - Review of Systems Review Of Systems: Comprehensive ROS is negative, except as noted in HPI. ED EXAM, GENERAL - Physical Exam Exam: See Below (see dictation) Course - Vital Signs Last Recorded V/S: Last Vital Signs Temp 98.5 F 02/06/19 08:52 Pulse 79 02/06/19 08:52 Resp 18 02/06/19 08:52 BP 167/100 H 02/06/19 08:52 Pulse Ox 94 L 02/06/19 08:52 - Orders/Labs/Meds Orders: Active Orders 24 hr Category Date Time Status Cardiac Monitoring [RC] . DIRECTED Care 02/06/19 08:37 Active EKG Documentation Completion [RC] STAT Care 02/06/19 08:38 Active Sodium Chloride 0.9% [Saline Flush] Med 02/06/19 08:37 Active 10 ml FLUSH ASDIRECTED PRN Sodium Chloride 0.9% [Saline Flush] Med 02/06/19 08:37 Active 2.5 ml FLUSH ASDIRECTED PRN Saline Lock Insert [OM.PC] Stat Oth 02/06/19 08:37 Ordered Medication Orders Sodium Chloride (Saline Flush) 10 ml FLUSH ASDIRECTED PRN PRN Reason: Keep Vein Open Sodium Chloride (Saline Flush) 2.5 ml FLUSH ASDIRECTED PRN PRN Reason: Keep Vein Open Labs: Laboratory Tests 02/06/19 02/06/19 02/06/19 Range/Units 08:45 08:45 08:45 WBC 10.84 (4.0-11.0) K/uL RBC 4.73 (4.50-5.90) M/uL Hgb 16.7 (13.0-17.0) g/dL Hct 47.1 (38.0-50.0) % MCV 99.6 H (80.0-98.0) fL MCH 35.3 H (27.0-32.0) pg MCHC 35.5 (31.0-37.0) g/dL RDW Std Deviation 49.5 (28.0-62.0) fl RDW Coeff of [place] 14 (11.0-15.0) % Plt Count 143 L (150-400) K/uL MPV 12.40 H (7.40-12.00) fL Neut % (Auto) 65.5 (48.0-80.0) % Lymph % (Auto) 22.3 (16.0-40.0) % [place] % (Auto) 10.4 (0.0-15.0) % Eos % (Auto) 1.4 (0.0-7.0) % Baso % (Auto) 0.4 (0.0-1.5) % Neut # (Auto) 7.5 H (1.4-5.7) K/uL Lymph # (Auto) 2.6 H (0.6-2.4) K/uL [place] # (Auto) 1.2 H (0.0-0.8) K/uL Eos # (Auto) 0.2 (0.0-0.7) K/uL Baso # (Auto) 0.1 (0.0-0.1) K/uL Nucleated RBC % 0.0 /100WBC Nucleated RBCs # 0 K/uL INR 1.02 Sodium 143 (136-148) mmol/L Potassium 3.0 L (3.5-5.1) mmol/L Chloride 104 (98-107) mmol/L Carbon Dioxide 24.6 (21.0-32.0) mmol/L BUN 5 L (7.0-18.0) mg/dL Creatinine 0.8 (0.8-1.3) mg/dL Est Cr Clr Drug Dosing 119.90 mL/min Estimated GFR (MDRD) > 60.0 ml/min Glucose 110 H (74-106) mg/dL Calcium 8.3 L (8.5-10.1) mg/dL Magnesium (1.8-2.4) mg/dL Total Bilirubin 0.6 (0.2-1.0) mg/dL AST 37 (15-37) IU/L ALT 29 (14-63) IU/L Alkaline Phosphatase 79 (46-116) U/L Troponin I < 0.050 (0.000-0.056) ng/mL Total Protein 7.6 (6.4-8.2) g/dL Albumin 3.6 (3.4-5.0) g/dL Globulin 4.0 (2.6-4.0) g/dL Albumin/Globulin Ratio 0.9 (0.9-1.6) 02/06/19 Range/Units 08:45 WBC (4.0-11.0) K/uL RBC (4.50-5.90) M/uL Hgb (13.0-17.0) g/dL Hct (38.0-50.0) % MCV (80.0-98.0) fL MCH (27.0-32.0) pg MCHC (31.0-37.0) g/dL RDW Std Deviation (28.0-62.0) fl RDW Coeff of [place] (11.0-15.0) % Plt Count (150-400) K/uL MPV (7.40-12.00) fL Neut % (Auto) (48.0-80.0) % Lymph % (Auto) (16.0-40.0) % [place] % (Auto) (0.0-15.0) % Eos % (Auto) (0.0-7.0) % Baso % (Auto) (0.0-1.5) % Neut # (Auto) (1.4-5.7) K/uL Lymph # (Auto) (0.6-2.4) K/uL [place] # (Auto) (0.0-0.8) K/uL Eos # (Auto) (0.0-0.7) K/uL Baso # (Auto) (0.0-0.1) K/uL Nucleated RBC % /100WBC Nucleated RBCs # K/uL INR Sodium (136-148) mmol/L Potassium (3.5-5.1) mmol/L Chloride (98-107) mmol/L Carbon Dioxide (21.0-32.0) mmol/L BUN (7.0-18.0) mg/dL Creatinine (0.8-1.3) mg/dL Est Cr Clr Drug Dosing mL/min Estimated GFR (MDRD) ml/min Glucose (74-106) mg/dL Calcium (8.5-10.1) mg/dL Magnesium 1.7 L (1.8-2.4) mg/dL Total Bilirubin (0.2-1.0) mg/dL AST (15-37) IU/L ALT (14-63) IU/L Alkaline Phosphatase (46-116) U/L Troponin I (0.000-0.056) ng/mL Total Protein (6.4-8.2) g/dL Albumin (3.4-5.0) g/dL Globulin (2.6-4.0) g/dL Albumin/Globulin Ratio (0.9-1.6) Meds: Medications Generic Name Dose Route Start Last Admin Trade Name Andrey PRN Reason Stop Dose Admin Sodium Chloride 10 ml 02/06/19 08:37 Saline Flush FLUSH ASDIRECTED PRN Keep Vein Open Sodium Chloride 2.5 ml 02/06/19 08:37 Saline Flush FLUSH ASDIRECTED PRN Keep Vein Open Discontinued Medications Generic Name Dose Route Start Last Admin Trade Name Andrey PRN Reason Stop Dose Admin Sodium Chloride 1,000 mls @ 999 mls/hr 02/06/19 08:37 Normal Saline IV 02/06/19 09:37 BOLUS ONE Potassium Chloride 40 meq 02/06/19 10:00 Potassium Chloride PO 02/06/19 10:01 ONETIME ONE Departure - Departure Time of Disposition: 10:04 Disposition: Refer to Observation Condition: Good Clinical Impression: Chest pain Qualifiers: Chest pain type: unspecified Qualified Code(s): R07.9 - Chest pain, unspecified Forms: ED Department Discharge - My Orders Last 24 Hours: My Active Orders 02/06/19 08:37 Cardiac Monitoring [RC] . DIRECTED Sodium Chloride 0.9% [Saline Flush] 10 ml FLUSH ASDIRECTED PRN Sodium Chloride 0.9% [Saline Flush] 2.5 ml FLUSH ASDIRECTED PRN Saline Lock Insert [OM.PC] Stat 02/06/19 08:38 EKG Documentation Completion [RC] STAT - Assessment/Plan Last 24 Hours: My Active Orders 02/06/19 08:37 Cardiac Monitoring [RC] . DIRECTED Sodium Chloride 0.9% [Saline Flush] 10 ml FLUSH ASDIRECTED PRN Sodium Chloride 0.9% [Saline Flush] 2.5 ml FLUSH ASDIRECTED PRN Saline Lock Insert [OM.PC] Stat 02/06/19 08:38 EKG Documentation Completion [RC] STAT
[2019-02-06 09:23] LABS: BLOOD UREA NITROGEN,BUN 5 mg/dL (7.0-18.0); CARBON DIOXIDE,CO2 24.6 mmol/L (21.0-32.0); CHLORIDE,CL 104 mmol/L (98-107); GLUCOSE RANDOM 110 mg/dL (74-106); SODIUM,NA 143 mmol/L (136-148)
--- NOTE | 2019-02-06 09:56 | CR ---
CHEST 1 VIEW AP INDICATION: Chest pain. IMPRESSION: Normal heart size and vascular pattern. Lungs are clear. No pneumothorax or pleural abnormality. ECG Monitor leads projected over the patient. Dictated by Jaspreet Beasley MD @ Feb 06 2019 9:55AM Signed by Dr. Jaspreet Beasley @ Feb 06 2019 9:55AM
[2019-02-06] MEDS ORDERED: Potassium Chloride 10% 20 MEQ/15 ML Soln 30 ML UD Cup PO ONE (10:00)
[2019-02-06] MEDS ORDERED: Ondansetron 4 MG Tab.DIS PO PRN (11:49)
[2019-02-06] MEDS ORDERED: Ondansetron 4 MG/2 ML SDV IVPUSH PRN (11:49)
[2019-02-06] MEDS ORDERED: Morphine 2 MG/ML Syringe IVPUSH PRN (11:49)
[2019-02-06] MEDS ORDERED: Acetaminophen 325 MG Tab PO PRN (11:49)
[2019-02-06] MEDS ORDERED: Enoxaparin 40 MG/0.4 ML Syringe SUBCUT SCH (12:00)
[2019-02-06] MEDS ORDERED: Magnesium Sulfate/Water 2 GM in Premix Bag 1 BAG IV ONE (12:19)
[2019-02-06 12:37] LABS: HEMOGLOBIN A1C 5.8 % (4.5-6.2)
--- NOTE | 2019-02-06 14:31 | PCM.HP.2 ---
<Gaudencio Sierra M - Last Filed: 02/06/19 20:49> H&P History of Present Illness - General Date of Service: 02/06/19 Admit Problem/Dx: Admission Diagnosis/Problem Admission Diagnosis/Problem Chest pain Source of Information: Patient History Limitations: Reports: No Limitations - History of Present Illness Initial Comments - Free Text/Narative: 53-year-old male presented to the ER with left-sided chest pain. He has a PMH of PA s/p stents and HTN. His left-sided chest pain is intermittent in nature, characterized as being sharp, lasting only for a few seconds when present and has been on and off for the past 3 hours prior to going to the ER. The pain was rated as a 1 out of 10 and did not radiate anywhere. He took a full dose of aspirin at home prior to coming to the ER. He also reported associated dry heaves. Denied having any sweats, nausea, vomiting or shortness of breath. Current everyday smoker and denied any illicit drug use. In the ER, Chest x-ray was negative and EKG showed no acute changes. He was found to be hypokalemic and was given 40 mEq of potassium chloride by mouth. Patient was admitted for further evaluation. Left Chest Pain Score (Numeric/FACES): 0 - Related Data Allergies/Adverse Reactions: Allergies Allergy/AdvReac Type Severity Reaction Status Date / Time No Known Allergies Allergy Verified 02/06/19 11:22 Home Medications: Home Meds Bisoprolol [Zebeta] 10 mg PO DAILY 12/07/16 [History] Lisinopril [Prinivil] 40 mg PO DAILY 12/07/16 [History] Nitroglycerin [Nitrostat] 0.4 mg SL ASDIRECTED 12/07/16 [History] Rosuvastatin Calcium 40 mg PO DAILY 12/07/16 [History] Spironolactone [Aldactone] 12.5 mg PO DAILY 12/07/16 [History] Aspirin 81 mg PO DAILY tab.chew 02/06/19 [Rx] Past Medical History HEENT History: Reports: None Cardiovascular History: Reports: PA Respiratory History: Reports: None Gastrointestinal History: Reports: None Genitourinary History: Reports: None Neurological History: Reports: None Psychiatric History: Reports: None Dermatologic History: Reports: None - Infectious Disease History Infectious Disease History: Reports: Chicken Pox - Past Surgical History HEENT Surgical History: Reports: None Cardiovascular Surgical History: Reports: Coronary Artery Stent GI Surgical History: Reports: None Musculoskeletal Surgical History: Reports: Other (See Below) Social & Family History - Family History Family Medical History: Noncontributory Cardiac: Reports: Hypertension Endocrine/Metabolic: Reports: Diabetes, type II - Tobacco Use Smoking Status *Q: Current Every Day Smoker Years of Tobacco use: 30 Packs/Tins Daily: 1 - Caffeine Use Caffeine Use: Reports: Soda - Alcohol Use Days Per Week of Alcohol Use: 4 Number of Drinks Per Day: 1 Total Drinks Per Week: 4 Date of Last Drink: 02/05/19 Time of Last Drink: 22:00 - Recreational Drug Use Recreational Drug Use: No H&P Review of Systems - Review of Systems: Review Of Systems: Comprehensive ROS is negative, except as noted in HPI. Exam - Exam Exam: See Below - Vital Signs Vital Signs: Last Vital Signs Temp 97 F 02/06/19 11:45 Pulse 69 02/06/19 11:45 Resp 18 02/06/19 11:45 BP 161/86 H 02/06/19 11:45 Pulse Ox 97 02/06/19 11:49 Weight: 114.85 kg - Exam General: Alert, Oriented, Cooperative, Other (NAD) HEENT: Conjunctiva Clear, EOMI, Mucosa Moist & [place], Pupils Equal, Pupils Reactive, Other (pharyngeal erythema) Neck: Supple, Trachea Midline Lungs: Clear to Auscultation Cardiovascular: Regular Rate, Regular Rhythm GI/Abdominal Exam: Normal Bowel Sounds, Soft, Non-Tender, No Distention Extremities: Other (trace pitting edema bilaterally) Peripheral Pulses: 1+: Posterior Tibial (L), Posterior Tibial (R) Skin: Warm, Dry, Intact Neurological: Cranial Nerves Intact, Strength Equal Bilateral, Normal Speech, Normal Tone Psychiatric: Alert, Normal Affect, Normal Mood - Patient Data Lab Results Last 24 hrs: Laboratory Results - last 24 hr 02/06/19 02/06/19 02/06/19 Range/Units 08:38 08:45 08:45 WBC 10.84 (4.0-11.0) K/uL RBC 4.73 (4.50-5.90) M/uL Hgb 16.7 (13.0-17.0) g/dL Hct 47.1 (38.0-50.0) % MCV 99.6 H (80.0-98.0) fL MCH 35.3 H (27.0-32.0) pg MCHC 35.5 (31.0-37.0) g/dL RDW Std Deviation 49.5 (28.0-62.0) fl RDW Coeff of Wilder 14 (11.0-15.0) % Plt Count 143 L (150-400) K/uL MPV 12.40 H (7.40-12.00) fL Neut % (Auto) 65.5 (48.0-80.0) % Lymph % (Auto) 22.3 (16.0-40.0) % [place] % (Auto) 10.4 (0.0-15.0) % Eos % (Auto) 1.4 (0.0-7.0) % Baso % (Auto) 0.4 (0.0-1.5) % Neut # (Auto) 7.5 H (1.4-5.7) K/uL Lymph # (Auto) 2.6 H (0.6-2.4) K/uL [place] # (Auto) 1.2 H (0.0-0.8) K/uL Eos # (Auto) 0.2 (0.0-0.7) K/uL Baso # (Auto) 0.1 (0.0-0.1) K/uL Nucleated RBC % 0.0 /100WBC Nucleated RBCs # 0 K/uL INR 1.02 Sodium (136-148) mmol/L Potassium (3.5-5.1) mmol/L Chloride (98-107) mmol/L Carbon Dioxide (21.0-32.0) mmol/L BUN (7.0-18.0) mg/dL Creatinine (0.8-1.3) mg/dL Est Cr Clr Drug Dosing mL/min Estimated GFR (MDRD) ml/min Glucose (74-106) mg/dL Hemoglobin A1c 5.8 (4.5-6.2) % Calcium (8.5-10.1) mg/dL Magnesium (1.8-2.4) mg/dL Total Bilirubin (0.2-1.0) mg/dL AST (15-37) IU/L ALT (14-63) IU/L Alkaline Phosphatase (46-116) U/L Troponin I (0.000-0.056) ng/mL Total Protein (6.4-8.2) g/dL Albumin (3.4-5.0) g/dL Globulin (2.6-4.0) g/dL Albumin/Globulin Ratio (0.9-1.6) Triglycerides (0-200) mg/dL Cholesterol (50-200) mg/dL LDL Cholesterol, Calc (60-180) mg/dL VLDL Cholesterol (5-55) mg/dL HDL Cholesterol (40-60) mg/dL Cholesterol/HDL Ratio (3.3-6.0) TSH 3rd Generation (0.36-3.74) uIU/mL 02/06/19 02/06/19 02/06/19 Range/Units 08:45 08:45 08:45 WBC (4.0-11.0) K/uL RBC (4.50-5.90) M/uL Hgb (13.0-17.0) g/dL Hct (38.0-50.0) % MCV (80.0-98.0) fL MCH (27.0-32.0) pg MCHC (31.0-37.0) g/dL RDW Std Deviation (28.0-62.0) fl RDW Coeff of Wilder (11.0-15.0) % Plt Count (150-400) K/uL MPV (7.40-12.00) fL Neut % (Auto) (48.0-80.0) % Lymph % (Auto) (16.0-40.0) % [place] % (Auto) (0.0-15.0) % Eos % (Auto) (0.0-7.0) % Baso % (Auto) (0.0-1.5) % Neut # (Auto) (1.4-5.7) K/uL Lymph # (Auto) (0.6-2.4) K/uL [place] # (Auto) (0.0-0.8) K/uL Eos # (Auto) (0.0-0.7) K/uL Baso # (Auto) (0.0-0.1) K/uL Nucleated RBC % /100WBC Nucleated RBCs # K/uL INR Sodium 143 (136-148) mmol/L Potassium 3.0 L (3.5-5.1) mmol/L Chloride 104 (98-107) mmol/L Carbon Dioxide 24.6 (21.0-32.0) mmol/L BUN 5 L (7.0-18.0) mg/dL Creatinine 0.8 (0.8-1.3) mg/dL Est Cr Clr Drug Dosing 119.90 mL/min Estimated GFR (MDRD) > 60.0 ml/min Glucose 110 H (74-106) mg/dL Hemoglobin A1c (4.5-6.2) % Calcium 8.3 L (8.5-10.1) mg/dL Magnesium 1.7 L (1.8-2.4) mg/dL Total Bilirubin 0.6 (0.2-1.0) mg/dL AST 37 (15-37) IU/L ALT 29 (14-63) IU/L Alkaline Phosphatase 79 (46-116) U/L Troponin I < 0.050 < 0.050 (0.000-0.056) ng/mL Total Protein 7.6 (6.4-8.2) g/dL Albumin 3.6 (3.4-5.0) g/dL Globulin 4.0 (2.6-4.0) g/dL Albumin/Globulin Ratio 0.9 (0.9-1.6) Triglycerides 115 (0-200) mg/dL Cholesterol 132 (50-200) mg/dL LDL Cholesterol, Calc 56 L (60-180) mg/dL VLDL Cholesterol 23 (5-55) mg/dL HDL Cholesterol 53 (40-60) mg/dL Cholesterol/HDL Ratio 2.5 L (3.3-6.0) TSH 3rd Generation 1.34 (0.36-3.74) uIU/mL Result Diagrams: 02/06/19 08:45 02/06/19 08:45 - Problem List (1) Hypokalemia SNOMED Code(s): 91082009 ICD Code: E87.6 - HYPOKALEMIA Status: Acute (2) Hypertension SNOMED Code(s): 82961756 ICD Code: I10 - ESSENTIAL (PRIMARY) HYPERTENSION Status: Acute (3) Chest pain SNOMED Code(s): 56667199 ICD Code: R07.9 - CHEST PAIN, UNSPECIFIED Status: Acute Qualifiers: Chest pain type: unspecified Qualified Code(s): R07.9 - Chest pain, unspecified Problem List Initiated/Reviewed/Updated: Yes Orders Last 24hrs: Active Orders 24 hr Category Date Time Status Admission Status [Patient Status] [ADT] Stat ADT 02/06/19 10:05 Active Cardiac Monitoring [RC] . DIRECTED Care 02/06/19 08:37 Active EKG Documentation Completion [RC] STAT Care 02/06/19 08:38 Active Oxygen Therapy [RC] PRN Care 02/06/19 11:49 Active Up ad [place] [RC] ASDIRECTED Care 02/06/19 11:49 Active VTE/DVT Education [RC] PER UNIT ROUTINE Care 02/06/19 11:49 Active Vital Signs [RC] Q4H Care 02/06/19 11:49 Active Heart Healthy Diet [DIET] Diet 02/06/19 Lunch Active B-TYPE NATRIURETIC PEPTIDE,BNP [CHEM] Stat Lab 02/06/19 12:20 Ordered BASIC METABOLIC PANEL,BMP [CHEM] AM Lab 02/07/19 05:11 Ordered CBC WITH AUTO DIFF [HEME] AM Lab 02/07/19 05:11 Ordered TROPONIN I [CHEM] Q3H Lab 02/06/19 14:25 Received TROPONIN I [CHEM] Q3H Lab 02/06/19 16:58 Ordered Acetaminophen [Tylenol] Med 02/06/19 11:49 Active 650 mg PO Q4H PRN Aspirin Med 02/07/19 09:00 Ordered 81 mg PO DAILY Bisoprolol Med 02/07/19 09:00 Ordered 10 mg PO DAILY Enoxaparin [Lovenox] Med 02/06/19 12:00 Active 40 mg SUBCUT Q24H Lisinopril [Prinivil] Med 02/07/19 09:00 Ordered 40 mg PO DAILY Morphine Med 02/06/19 11:49 Active 2 mg IVPUSH Q2H PRN Ondansetron [Zofran ODT] Med 02/06/19 11:49 Active 4 mg PO Q4H PRN Ondansetron [Zofran] Med 02/06/19 11:49 Active 4 mg IVPUSH Q4H PRN Rosuvastatin Calcium [Rosuvastatin Calcium] Med 02/07/19 09:00 Ordered 40 mg PO DAILY Sodium Chloride 0.9% [Saline Flush] Med 02/06/19 08:37 Active 10 ml FLUSH ASDIRECTED PRN Sodium Chloride 0.9% [Saline Flush] Med 02/06/19 08:37 Active 2.5 ml FLUSH ASDIRECTED PRN Spironolactone [Aldactone] Med 02/07/19 09:00 Ordered 12.5 mg PO DAILY Saline Lock Insert [OM.PC] Stat Oth 02/06/19 08:37 Ordered Resuscitation Status Routine Resus Stat 02/06/19 11:49 Ordered Medication Orders Acetaminophen (Tylenol) 650 mg PO Q4H PRN PRN Reason: Pain (Mild 1-3)/fever Aspirin (Aspirin) 81 mg PO DAILY [facility] Enoxaparin Sodium (Lovenox) 40 mg SUBCUT Q24H [facility] Last Admin: 02/06/19 12:52 Dose: 40 mg Lisinopril (Prinivil) 40 mg PO DAILY [facility] Morphine Sulfate (Morphine) 2 mg IVPUSH Q2H PRN PRN Reason: Pain (severe 7-10) Stop: 02/07/19 11:52 Non-Formulary Medication (Bisoprolol) 10 mg PO DAILY [facility] Non-Formulary Medication (Rosuvastatin Calcium [Rosuvastatin Calcium]) 40 mg PO DAILY [facility] Ondansetron HCl (Zofran Odt) 4 mg PO Q4H PRN PRN Reason: nausea, able to take PO Ondansetron HCl (Zofran) 4 mg IVPUSH Q4H PRN PRN Reason: Nausea Sodium Chloride (Saline Flush) 10 ml FLUSH ASDIRECTED PRN PRN Reason: Keep Vein Open Last Admin: 02/06/19 10:24 Dose: 10 ml Sodium Chloride (Saline Flush) 2.5 ml FLUSH ASDIRECTED PRN PRN Reason: Keep Vein Open Last Admin: 02/06/19 10:24 Dose: 2.5 ml Spironolactone (Aldactone) 12.5 mg PO DAILY [facility] Assessment/Plan Comment:: Assessment: 1. Chest pain, ACS rule out. 2. Hypokalemia. 3. Hypomagnesemia, mild. 4. Hypertension. Plan: 1. For chest pain, will trend trops q3h. Patient is on telemetry. He is currently asymptomatic. 2. For hypokalemia, repleted with KCl 40 mEq PO. 3. For hypomagnesemia, will replete with 2 gm IV mag sulfate. 4. For hypertension, will continue with home medications. Patient troponins were trended and were negative x3. Patient remained asymptomatic and had no recurrence of chest pain. Patient advised to follow-up with his PCP tomorrow as he is scheduled for an appointment already. He was also advised to follow-up with geophysical computer Dr. Nguyen as he may require a stress test. Patient was discharged in stable condition. All questions were addressed. <Gurmeet Nieto - Last Filed: 02/12/19 09:13> H&P History of Present Illness - General Admit Problem/Dx: Admission Diagnosis/Problem Admission Diagnosis/Problem Chest pain Exam - Vital Signs Vital Signs: Last Vital Signs Temp 36.8 C 02/06/19 16:00 Pulse 62 02/06/19 16:00 Resp 20 02/06/19 16:00 BP 147/81 H 02/06/19 16:00 Pulse Ox 96 02/06/19 16:00 - Patient Data Result Diagrams: 02/06/19 08:45 02/06/19 08:45 Assessment/Plan Comment:: I have seen and examined the patient and performed History and physical, i have discussed the management plan with the resident and agree with the documentation unless specified otherwise in my note.
[2019-02-06 17:26] VITALS: BP 147/81; PULSE 62
[2019-02-07] MEDS ORDERED: Aspirin 81 MG Tab.Chew PO SCH (09:00)
[2019-02-07] MEDS ORDERED: Spironolactone 25 MG Tab PO SCH (09:00)
[2019-02-07] MEDS ORDERED: Rosuvastatin 10 MG Tab PO SCH (09:00)
[2019-02-07] MEDS ORDERED: Lisinopril 10 MG Tab PO SCH (09:00)
[2019-02-07] MEDS ORDERED: BISOPROLOL 10 MG PO SCH (09:00)
== END 2019-02-06 19:15 | disposition home or self-care (01) ==
LOC: MW.ED 08:35 → MW.MS 10:19
PROVIDERS: ADMIT Student in an Organized Health Care Education/Training Program; ATTEND Student in an Organized Health Care Education/Training Program
DX: R07.9 Chest pain, unspecified (principal); E87.6 Hypokalemia; E83.42 Hypomagnesemia; I10 Essential (primary) hypertension; I25.2 Old myocardial infarction; F17.210 Nicotine dependence, cigarettes, uncomplicated; Z95.5 Presence of coronary angioplasty implant and graft; Z79.899 Other long term (current) drug therapy
CPT/HCPCS: 36415; 71045; 80053; 80061; 83036; 83735; 83880; 84443; 84484; 85025; 85610; 93005; 96361; 96372; 96374; 99285; A9270; G0378; J1650; J3475; J7030; 96360; 99284

== ENCOUNTER 2019-07-27 19:32 | Emergency (ER) | payer BC ==
[2019-07-27] MEDS ORDERED: Sodium Chloride 0.9% 10 ML Syringe FLUSH PRN (19:35)
[2019-07-27] MEDS ORDERED: Sodium Chloride 0.9% 2.5 ML Syringe FLUSH PRN (19:35)
[2019-07-27] MEDS ORDERED: Nitroglycerin 0.4 MG Tab.SL SL PRN (19:35)
[2019-07-27] MEDS ORDERED: Aspirin 81 MG Tab.Chew PO ONE (19:35)
--- NOTE | 2019-07-27 19:44 | EDM.PDOC ---
ED HPI GENERAL MEDICAL PROBLEM - General Chief Complaint: Chest Pain Stated Complaint: POSSIBLE HEART ATTACK Time Seen by Provider: 07/27/19 19:35 Source of Information: Reports: Patient, EMS History Limitations: Reports: No Limitations - History of Present Illness INITIAL COMMENTS - FREE TEXT/NARRATIVE: History of present illness: [Patient is a 54-year-old male who presents with chest pain that started about an hour prior to arrival. He states he was sitting in his garage drinking a beer and relaxing when he felt some sudden onset central chest pain with tingling in his left arm. Says he has a history of previous stents and heart attack 12 years ago. States he has been fine for the last 12 years with no complications since stents placed. States that he took 2 of his nitro tablets at home which resulted in complete resolution of his pain by the time EMS arrived. No aspirin taken yet. 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 Past medical history: As per history of present illness and as reviewed below otherwise noncontributory. Surgical history: As per history of present illness and as reviewed below otherwise noncontributory. Social history: No reported history of drug or alcohol abuse. Family history: As per history of present illness and as reviewed below otherwise noncontributory. Physical exam: HEENT: Atraumatic, normocephalic, pupils reactive, negative for conjunctival pallor or scleral icterus, mucous membranes moist, throat clear, neck supple, nontender, trachea midline. Lungs: Clear to auscultation, breath sounds equal bilaterally, chest nontender. Heart: S1S2, regular, negative for clicks, rubs, or JVD. Abdomen: Soft, nondistended, nontender. Negative for masses or hepatosplenomegaly. Negative for costovertebral tenderness. Pelvis: Stable nontender. Genitourinary: Deferred. Rectal: Deferred. Extremities: Atraumatic, negative for cords or calf pain. Neurovascular unremarkable. Neuro: Awake, alert, oriented. No focal neuro deficits, sensation and strength grossly intact throughout. Diagnostics: [] Therapeutics: [] Impression: [] Plan: [] Definitive disposition and diagnosis as appropriate pending reevaluation and review of above. - Related Data Allergies Allergy/AdvReac Type Severity Reaction Status Date / Time No Known Allergies Allergy Verified 07/27/19 19:51 Home Meds: Home Meds Bisoprolol [Zebeta] 10 mg PO DAILY 12/07/16 [History] Lisinopril [Prinivil] 40 mg PO DAILY 12/07/16 [History] Nitroglycerin [Nitrostat] 0.4 mg SL ASDIRECTED 12/07/16 [History] Rosuvastatin Calcium 40 mg PO DAILY 12/07/16 [History] Spironolactone [Aldactone] 12.5 mg PO DAILY 12/07/16 [History] Aspirin 81 mg PO DAILY tab.chew 02/06/19 [Rx] Past Medical History HEENT History: Reports: None Cardiovascular History: Reports: CT Respiratory History: Reports: None Gastrointestinal History: Reports: None Genitourinary History: Reports: None Neurological History: Reports: None Psychiatric History: Reports: None Dermatologic History: Reports: None - Infectious Disease History Infectious Disease History: Reports: Chicken Pox - Past Surgical History HEENT Surgical History: Reports: None Cardiovascular Surgical History: Reports: Coronary Artery Stent GI Surgical History: Reports: None Musculoskeletal Surgical History: Reports: Other (See Below) Social & Family History - Family History Family Medical History: Noncontributory Cardiac: Reports: Hypertension Endocrine/Metabolic: Reports: Diabetes, type II - Caffeine Use Caffeine Use: Reports: Soda ED ROS GENERAL - Review of Systems Review Of Systems: Comprehensive ROS is negative, except as noted in HPI. ED EXAM, GENERAL - Physical Exam Exam: See Below (see H and P) Free Text/Narrative:: see H and P EKG INTERPRETATION EKG Date: 07/27/19 Time: 07:30 Rhythm: NSR Rate (Beats/Min): 63 [place]: Normal P-Wave: Present QRS: Normal ST-T: Elevated (St elevation in V2 (seen in previous EKG) no reciprocal depressions.) QT: Normal Comparison: No Change (similar to EKG on 02-06-19) Course - Vital Signs Text/Narrative:: Patient with a heart score 5. Serial troponins have been negative. I recommended the patient that he be admitted for further work-up and evaluation including trending the troponins. He declined stating he has things he needs to do home. I warned him of the risks of leaving without further work-up including possible heart attack, permanent disability and . He elected to leave AGAINST MEDICAL ADVICE in spite of these warnings. He was of sound mind and capable of making medical decisions at the time he made this choice. He has been chest pain-free throughout his emergency department stay. Labs have reassuring. Mild hypokalemia. Hemodynamically stable. Last Recorded V/S: Last Vital Signs Temp 36.7 C 07/27/19 19:35 Pulse 60 07/27/19 20:38 Resp 18 07/27/19 20:38 BP 151/85 H 07/27/19 20:38 Pulse Ox 96 07/27/19 20:38 - Orders/Labs/Meds Orders: Active Orders 24 hr Category Date Time Status Cardiac Monitoring [RC] . DIRECTED Care 07/27/19 19:35 Active EKG Documentation Completion [RC] STAT Care 07/27/19 19:35 Active Oxygen Therapy [RC] ASDIRECTED Care 07/27/19 19:35 Active Pulse Oximetry [RC] ASDIRECTED Care 07/27/19 19:35 Active Nitroglycerin [Nitrostat] Med 07/27/19 19:35 Active 0.4 mg SL Q5M PRN Sodium Chloride 0.9% [Saline Flush] Med 07/27/19 19:35 Active 10 ml FLUSH ASDIRECTED PRN Sodium Chloride 0.9% [Saline Flush] Med 07/27/19 19:35 Active 2.5 ml FLUSH ASDIRECTED PRN Saline Lock Insert [OM.PC] Stat Oth 07/27/19 19:35 Ordered Medication Orders Nitroglycerin (Nitrostat) 0.4 mg SL Q5M PRN PRN Reason: Chest Pain Sodium Chloride (Saline Flush) 10 ml FLUSH ASDIRECTED PRN PRN Reason: Keep Vein Open Sodium Chloride (Saline Flush) 2.5 ml FLUSH ASDIRECTED PRN PRN Reason: Keep Vein Open Labs: Laboratory Tests 07/27/19 07/27/19 07/27/19 Range/Units 19:25 19:25 22:26 WBC 13.70 H (4.0-11.0) K/uL RBC 4.69 (4.50-5.90) M/uL Hgb 16.7 (13.0-17.0) g/dL Hct 47.8 (38.0-50.0) % MCV 101.9 H (80.0-98.0) fL MCH 35.6 H (27.0-32.0) pg MCHC 34.9 (31.0-37.0) g/dL RDW Std Deviation 51.6 (28.0-62.0) fl RDW Coeff of Wilder 14 (11.0-15.0) % Plt Count 180 (150-400) K/uL MPV 12.50 H (7.40-12.00) fL Neut % (Auto) 69.4 (48.0-80.0) % Lymph % (Auto) 20.7 (16.0-40.0) % [place] % (Auto) 8.6 (0.0-15.0) % Eos % (Auto) 1.0 (0.0-7.0) % Baso % (Auto) 0.3 (0.0-1.5) % Neut # (Auto) 9.7 H (1.4-5.7) K/uL Lymph # (Auto) 2.9 H (0.6-2.4) K/uL [place] # (Auto) 1.2 H (0.0-0.8) K/uL Eos # (Auto) 0.1 (0.0-0.7) K/uL Baso # (Auto) 0.0 (0.0-0.1) K/uL Nucleated RBC % 0.0 /100WBC Nucleated RBCs # 0 K/uL Sodium 137 (136-148) mmol/L Potassium 3.1 L (3.5-5.1) mmol/L Chloride 101 (98-107) mmol/L Carbon Dioxide 22.8 (21.0-32.0) mmol/L BUN 5 L (7.0-18.0) mg/dL Creatinine 0.8 (0.8-1.3) mg/dL Est Cr Clr Drug Dosing 118.56 mL/min Estimated GFR (MDRD) > 60.0 ml/min Glucose 115 H (74-106) mg/dL Calcium 8.6 (8.5-10.1) mg/dL Total Bilirubin 0.7 (0.2-1.0) mg/dL AST 53 H (15-37) IU/L ALT 61 (14-63) IU/L Alkaline Phosphatase 88 (46-116) U/L Troponin I < 0.050 < 0.050 (0.000-0.056) ng/mL Total Protein 7.8 (6.4-8.2) g/dL Albumin 3.9 (3.4-5.0) g/dL Globulin 3.9 (2.6-4.0) g/dL Albumin/Globulin Ratio 1.0 (0.9-1.6) Meds: Medications Generic Name Dose Route Start Last Admin Trade Name Freq PRN Reason Stop Dose Admin Nitroglycerin 0.4 mg 07/27/19 19:35 Nitrostat SL Q5M PRN Chest Pain Sodium Chloride 10 ml 07/27/19 19:35 Saline Flush FLUSH ASDIRECTED PRN Keep Vein Open Sodium Chloride 2.5 ml 07/27/19 19:35 Saline Flush FLUSH ASDIRECTED PRN Keep Vein Open Discontinued Medications Generic Name Dose Route Start Last Admin Trade Name Freq PRN Reason Stop Dose Admin Aspirin 324 mg 07/27/19 19:35 07/27/19 19:49 Aspirin PO 07/27/19 19:36 324 mg ONETIME ONE Administration Potassium Chloride 40 meq 07/27/19 20:22 07/27/19 20:38 Potassium Chloride PO 07/27/19 20:23 40 meq ONETIME ONE Administration Departure - Departure Time of Disposition: 23:03 (AMA) Disposition: Against Medical Advice 07 Condition: Good Clinical Impression: Chest pain in adult Chest pain Qualifiers: Chest pain type: unspecified Qualified Code(s): R07.9 - Chest pain, unspecified Instructions: Angina, [id number] Referrals: Wyatt Aguilar MD [Primary Care Provider] - Forms: ED Department Discharge Sepsis Event Note - Focused Exam Vital Signs: Vital Signs Temp Pulse Resp BP Pulse Ox 07/27/19 20:38 60 18 151/85 H 96 07/27/19 19:35 36.7 C 68 18 160/80 H 98 Date Exam was Performed: 07/27/19 Time Exam was Performed: 23:08 - My Orders Last 24 Hours: My Active Orders 07/27/19 19:35 Cardiac Monitoring [RC] . DIRECTED EKG Documentation Completion [RC] STAT Oxygen Therapy [RC] ASDIRECTED Pulse Oximetry [RC] ASDIRECTED Nitroglycerin [Nitrostat] 0.4 mg SL Q5M PRN Sodium Chloride 0.9% [Saline Flush] 10 ml FLUSH ASDIRECTED PRN Sodium Chloride 0.9% [Saline Flush] 2.5 ml FLUSH ASDIRECTED PRN Saline Lock Insert [OM.PC] Stat - Assessment/Plan Last 24 Hours: My Active Orders 07/27/19 19:35 Cardiac Monitoring [RC] . DIRECTED EKG Documentation Completion [RC] STAT Oxygen Therapy [RC] ASDIRECTED Pulse Oximetry [RC] ASDIRECTED Nitroglycerin [Nitrostat] 0.4 mg SL Q5M PRN Sodium Chloride 0.9% [Saline Flush] 10 ml FLUSH ASDIRECTED PRN Sodium Chloride 0.9% [Saline Flush] 2.5 ml FLUSH ASDIRECTED PRN Saline Lock Insert [OM.PC] Stat
--- NOTE | 2019-07-27 20:03 | CR ---
Chest: Portable view of the chest was obtained. Comparison: Prior chest x-ray of 02/06/19. Heart size and mediastinum are normal. Lungs are clear with no acute parenchymal change. Bony structures are grossly intact. Impression: 1. Nothing acute is seen on portable chest x-ray. Diagnostic code #1 This report was dictated in MDT
[2019-07-27 20:13] LABS: BLOOD UREA NITROGEN,BUN 5 mg/dL (7.0-18.0); CARBON DIOXIDE,CO2 22.8 mmol/L (21.0-32.0); CHLORIDE,CL 101 mmol/L (98-107); GLUCOSE RANDOM 115 mg/dL (74-106); POTASSIUM,K 3.1 mmol/L (3.5-5.1); SODIUM,NA 137 mmol/L (136-148)
[2019-07-27] MEDS ORDERED: Potassium Chloride 10% 20 MEQ/15 ML Soln 30 ML UD Cup PO ONE (20:22)
[2019-07-27 23:15] VITALS: BP 140/90; PULSE 66
== END 2019-07-27 23:05 | disposition left against medical advice (07) ==
LOC: MW.ED 19:32
DX: R07.9 Chest pain, unspecified (principal)
CPT/HCPCS: 36415; 71045; 80053; 84484; 85025; 93005; 99285; A9270; 99284